=== PATIENT | female | born 1995 | race Caucasian/White ===

== ENCOUNTER 2018-08-21 20:16 | Emergency (ER) | payer BC ==
--- NOTE | 2018-08-21 20:59 | EDPHY ---
H & P Smoking Status: Never smoked <EdvinVanesa B - Last Filed: 08/21/18 22:48> <Kira Parker - Last Filed: 08/22/18 02:03> Time Seen by Provider: 08/21/18 20:21 HPI/ROS: HPI Right flank pain. 23-year-old female by private vehicle. This patient complains of right flank pain, onset on [place]. She describes it as sharp and aching. She describes it as worse with taking a deep breath. She reports having some associated shortness of breath with exertion. She reports also that she noticed some pain up in her right trapezius and shoulder area as well. She has a history of DVT right upper extremity from thoracic outlet syndrome. She had her 1st rib removed 3 years ago. She is not on any anticoagulation. She does take control pills. She states that she does have some radiation of the pain is well to her right upper quadrant. No fever. No cough. No urinary complaints. ROS: Constitutional: No fever, no chills. No weakness. Eyes: No discharge. No changes in vision. ENT: No sore throat. No nasal congestion or rhinorrhea. Respiratory: No cough. No shortness of breath. Cardiac: No chest pain, no palpitations. Gastrointestinal: As above, no vomiting, no diarrhea. Genitourinary: No hematuria. No dysuria or increased frequency with urination. Musculoskeletal: As above. No neck pain. No myalgias or arthralgias. Skin: No rashes. Neurological: No headache. No focal weakness or altered sensation. Past medical history: Thoracic outlet syndrome with DVT, 2016, anxiety not medicated for this, takes valacyclovir for genital herpes. Social history: She is from [place]. 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 Nonsmoker. Very physically active. Physical Exam: General Appearance: Alert, no distress. This patient is responding to questions appropriately and in full sentences. This patient appears well- hydrated and well-nourished. Eyes: Pupils equal and round no pallor or injection. No lid edema, erythema or injection. Respiratory: There are no retractions, lungs are clear to auscultation with good air movement bilaterally. Cardiovascular: Regular rate and rhythm. Subtle holosystolic murmur. Gastrointestinal: Abdomen is soft and nontender, no masses, bowel sounds normal. No focal tenderness at McBurney's point. No Cardoza sign. Neurological: Motor sensory function is grossly intact. Cranial nerves are normal. Gait is normal. Skin: Warm and dry, no rashes. Musculoskeletal: Neck is supple and nontender. Vague right lower lateral flank tenderness on palpation. No left-sided CVA tenderness on palpation. Extremities are symmetrical. The right upper extremity is symmetrical with the left upper extremity. No edema or swelling noted on gross inspection All joints range without pain or impingement. Psychiatric: No agitation. No depression. Database: EKG: Imaging: Chest x-ray PA and lateral: The cardiac mediastinal silhouette is normal. No evidence of infiltrate or pneumothorax. No acute cardiopulmonary disease process. Interpreted by me. Right upper extremity ultrasound: Right upper quadrant ultrasound: Procedures: Emergency department course: Triage vital signs reviewed and are normal. IV placed. She declines pain medication at this time. Differential diagnosis as below. 9:40 p.m., the patient was re-evaluated, she is resting comfortably at this time. Results of her known diagnostic studies discussed with her. We are awaiting the procedures tech who has been called but is coming from [place]. D- dimer testing was not available as a point of care. D-dimer was sent over to the main lab at [facility]. 10:50 p.m., the patient is currently in ultrasound. Her D-dimer is elevated. Her presentation is concerning for pulmonary embolism. CT angiogram of her chest has been ordered. The patient endorses this study. Her care was turned over to Dr. Kira Parker at 11:00 p.m.. Results of ultrasounds and CT angiogram of chest are pending. Differential Diagnosis: The differential diagnosis on this patient includes but is not limited to pulmonary embolism, pyelonephritis, biliary colic, pneumonia, pleurisy, right upper extremity DVT. This represents a partial list of diagnoses considered. These considerations are based on history, physical exam, past history, reassessment and diagnostic testing. (Vanesa Pardo) Constitutional: Initial Vital Signs Temperature (C) 98.2 F 08/21/18 20:25 Heart Rate 66 08/21/18 20:25 Respiratory Rate 16 08/21/18 20:25 Blood Pressure 124/92 H 08/21/18 20:25 O2 Sat (%) 97 04/17/19 20:25 O2 Delivery Mode Room Air Allergies/Adverse Reactions: No Known Allergies Allergy (Unverified 08/21/18 20:24) Home Medications: Medication Instructions Recorded Bcp 08/21/18 Valacyclovir HCl 08/21/18 Medical Decision Making <Vanesa Pardo - Last Filed: 08/21/18 22:48> - Diagnostics Imaging: Discussed imaging studies w/ program therapist Radiologist <Kira Parker - Last Filed: 08/22/18 02:03> - Diagnostics Imaging Results: Imaging Impressions Chest X-Ray 08/21/18 20:30 Impression: No acute cardiopulmonary process. Abdomen Ultrasound 08/21/18 20:37 Impression: Contracted gallbladder. Otherwise, unremarkable ultrasound. Findings and recommendations discussed with physician on-call at 2348 hour, 08/21. Extremity Venous Study 08/21/18 20:37 Impression: Negative for right upper extremity DVT. Findings and recommendations discussed with physician drafter directional survey at 2348 hour, 08/21. Direct Radiology Preliminary Report CTA Chest: No evidence of pulmonary embolus or other acute abnormality in the chest. (Kira Parker) ED Course/Re-evaluation: The patient was seen and evaluated independently by me after sign-out by Dr. Vanesa Pardo at 11:00 p.m.. The patient's upper abdominal ultrasound showed a contracted gallbladder and otherwise unremarkable. Right upper extremity ultrasound was negative for DVT. The preliminary direct radiology report of the CT pulmonary angiogram was negative for acute process. All the patient's questions were answered at the time of discharge to the best of my ability. She does not have a primary care provider and therefore she was referred to the primary care provider drafter directional survey. She was advised to call in the morning to make an appointment within the week. She will return to the emergency room if she has any change in or worsening of her symptoms or further problems and concerns. (Kira Parker) - Data Points Laboratory Results: 08/21/18 08/21/18 21:17 20:44 D-Dimer 1.09 ug/mLFEU H ug/mLFEU (0.00-0.50) POC Sodium 140 mEq/L mEq/L (135-145) POC Potassium 3.5 mEq/L mEq/L (3.3-5.0) POC Chloride 105.0 mEq/L mEq/L (97-110) POC Total CO2 26 mEq/L mEq/L (22-31) POC BUN 13 mg/dL mg/dL (7-23) POC Creatinine 0.9 mg/dL mg/dL (0.6-1.0) POC Glucose 118 mg/dL H mg/dL (70-100) POC Calcium 9.8 mg/dL mg/dL (8.5-10.4) POC Total Bilirubin 0.6 mg/dL mg/dL (0.1-1.4) POC AST 29 IU/L IU/L (14-46) POC ALT 20 IU/L IU/L (9-52) POC Alk Phosphatase 53 IU/L IU/L (38-126) POC Total Protein 7.2 g/dL g/dL (6.3-8.2) POC Albumin 3.5 g/dL g/dL (3.5-5.0) Point of Care Test Results: CBC CBC Collection Date 08/21/18 CBC Collection Time 20:44 WBC 6.4 RBC 4.28 HGB 13.3 HCT 38.0 PLT 304 Neut # 3.86 Neut 60.3 LYMPH # 2.05 LYMPH 32.0 MCV 88.8 Chemistry 08/21/18 21:17 POC Sodium 140 mEq/L mEq/L (135-145) POC Potassium 3.5 mEq/L mEq/L (3.3-5.0) POC Chloride 105.0 mEq/L mEq/L (97-110) POC Total CO2 26 mEq/L mEq/L (22-31) POC BUN 13 mg/dL mg/dL (7-23) POC Creatinine 0.9 mg/dL mg/dL (0.6-1.0) POC Glucose 118 mg/dL H mg/dL (70-100) POC Calcium 9.8 mg/dL mg/dL (8.5-10.4) POC Total Bilirubin 0.6 mg/dL mg/dL (0.1-1.4) POC AST 29 IU/L IU/L (14-46) POC ALT 20 IU/L IU/L (9-52) POC Alk Phosphatase 53 IU/L IU/L (38-126) POC Total Protein 7.2 g/dL g/dL (6.3-8.2) POC Albumin 3.5 g/dL g/dL (3.5-5.0) Urine Collection Date 08/21/18 Collection Time 20:39 HCG Results Negative Urine Dip Collection Date 08/21/18 Collection Time 20:39 Specific [place] (1.002-1.030) 1.005 PH (5.0-7.5) 5.0 Leukocytes (Negative) Negative Nitrites (Negative) Negative Protein (Negative) Negative Glucose (Negative) Negative Ketones (Negative) Negative Urobilnogen (0.2-1.0 EU) 0.2 Bilirubin (Negative) Negative Blood (Negative) Trace Departure <Vanesa Pardo - Last Filed: 08/21/18 22:48> <Kira Parker - Last Filed: 08/22/18 02:03> - Departure Disposition: Home, Routine, Self-Care Clinical Impression: Right flank pain Condition: Good Instructions: Flank Pain (ED) Additional Instructions: No definite cause was found for your pain today. The Ultrasound of your gallbladder was suboptimal and may need to be repeated if symptoms persist. Please call first thing in the morning to establish care and follow up in the next few days with the primary care provider listed or a provider or your choice. Return to the ER immediately if symptoms change or worsen or any other concerns. Referrals: Aurora Mancilla MD [Medical Doctor] - As per Instructions Stand Alone Forms: Work Excuse
[2018-08-21] MEDS ORDERED: IOPAMIDOL (ISOVUE 370) 100 ML BTL IV ONE (22:55)
[2018-08-22 01:10] VITALS: BP 126/83
== END 2018-08-22 01:05 | disposition home or self-care (01) ==
LOC: CED 20:16
DX: R10.11 Right upper quadrant pain (principal); M25.511 Pain in right shoulder; R79.89 Other specified abnormal findings of blood chemistry
CPT/HCPCS: 71046-PO; 71275-PO; 76705-PO; 80053-ER; 81025-ER; 85025-QW-ER; 93971-PO; 99285-ER; Q9967